=== PATIENT | male | born 1995 ===

== ENCOUNTER 2020-02-24 09:01 | Emergency (ER) | payer SELFPAY ==
[~2020-02-24] VITALS: Ht 182.9 cm; Wt 59.0 kg
--- NOTE | 2020-02-24 08:55 | NUR ---
ED Nurse Note: Patient brought into ED from the street by ambulance [facility] [id number] due to anxiety. patient denies SI/HI, patient reports he wants to get evaluation for possible schizophrenia, patient reports his brother recently diagnosed with schizophrenia. patient denies hearing any voices. patient placed on a nuclear monitoring technician, patient placed on a hospital gown. patient's HR noted 120-130 on a monitor. patient is alert awake x4 ambulatory, breathing unlabored and even, afebrile, patient appears to be anxious, compliant with commands at this time
[2020-02-24 08:56] VITALS: BP 115/81
--- NOTE | 2020-02-24 09:07 | NUR ---
ED Nurse Note: patient eloped. patient changed into his own clothes and ran away, without being seen by ER MD. Charge nurse and Dr. Simon made aware.
[2020-02-24 09:08] VITALS: BP 115/81
== END 2020-02-24 09:30 | disposition left against medical advice (07) ==
LOC: EDBD 09:01 → EMR 09:27
DX: F41.9 Anxiety disorder, unspecified (principal); Z53.21 Procedure and treatment not carried out due to patient leaving prior to being seen by health care provider
CPT/HCPCS: 99281